=== PATIENT | male | born 1965 | race Caucasian/White ===

== ENCOUNTER 2018-01-10 12:02 | Inpatient (IN) | payer OTHER ==
[~2018-01-10] VITALS: Ht 160 cm; Wt 69.5 kg
[~2018-01-10 12:02] MED LIST: ACETAMINOPHEN325 M1 PO; ADVIL MIGRAINE200 MG PO; ADVIL,NUPRIN,M200 MG PO; ATHENOL325 MG PO; BICARSIM80 MG PO; BISAC-EVAC10 MG PR; CARAFATE1 GM PO; CLONAZEPAM1 MG PO; CLONIDINE HCL0.1 MG PO; COLACE100 MG PO; CONSTULOSE10 GM/15 M PO; DAIRY RELIE3000 UNIT PO; DESYREL 150 MG150 MG PO; DULCOLAX10 MG PR; DUONEB 2.5-0.5 M3 ML IH; Dulcolax PR; FEROSUL220 MG/51 PO; FERROUS SU220 MG/51 PO; FLINTSTONES1 TABLET PO; GAS RELIEF40 MG/0.6 PO; KLONOPIN1 MG PO; LACTAID3000 UNIT PO; LACTULOSE10 GM/151 PO; LITHIUM CARBON300 MG PO; MILK OF MAGNES311 MG PO; MILK OF MAGNESI10 ML PO; MOTRIN IB200 MG PO; MULTICHEW CHEW1 EACH; MULTIVITAMIN; MULTIVITAMIN1 EAC2 PO; Milk Of Magnesia,MOM PO; NYSTATIN15 GM TP; PANTOPRAZOLE SO40 MG PO; PERIDEX1 ML MM; PERIDEX1 ML PO; PLETAL100 M1 PO; PLETAL100 MG PO; PREVIDENT 500056 GM PO; PRINIVIL10 MG PO; PROTONIX40 MG PO; QUETIAPINE FUMA50 MG PO; RANITIDINE HCL300 MG PO; REGLAN5 MG PO; ROBITUSSIN DM1 ML PO; ROBITUSSIN DM118 ML PO; SEROQUEL100 MG PO; SEROQUEL200 MG PO; TYLENOL REGULA325 MG PO; TYLENOL325 M1 PO; VALIUM10 MG PO; ZOFRAN4 MG PO
[2018-01-10 12:56] LABS: HEMATOCRIT 40.5 % (38.0-50.0); MCH 32.7 PG (29.0-34.0); MCHC 34.6 G/DL (30.0-36.0); MCV 94.6 FL (86-99); PLATELET COUNT 156 K/uL (156-360); RBC DIS.WIDTH-SD 54.8 % (39-53); RED BLOOD COUNT 4.28 M/uL (4.00-5.50); WHITE BLOOD COUNT 8.8 K/uL (4.1-10.2)
[2018-01-10 13:10] LABS: CHLORIDE 107 mEq/L (99-109); POTASSIUM 3.8 mEq/L (3.7-5.4); SODIUM 140 mEq/L (136-147)
[2018-01-10 13:12] LABS: GLUCOSE 114 mg/dL (70-99)
[2018-01-10 13:16] LABS: CREATININE 0.7 mg/dL (0.6-1.3); GFR ESTIMATE (CALCULATED) > 59 mL/min/ (58.99-99999)
[2018-01-10 13:17] LABS: UREA NITROGEN (BUN) 8 mg/dL (9-23)
[2018-01-10] MEDS ORDERED: OMEPRAZOLE40 M1 PO (17:53)
[2018-01-10] MEDS ORDERED: METAMUCIL PACK3.4 GM PO (17:53)
[2018-01-10] MEDS ORDERED: COLACE100 MG PO (17:55)
[2018-01-10] MEDS ORDERED: SENNA8.6 MG PO (17:56)
[2018-01-10] MEDS ORDERED: CEFTIN500 MG PO (17:57)
[2018-01-10] MEDS ORDERED: SEROQUEL12.5 MG PO (17:59)
[2018-01-10] MEDS ORDERED: HEMORRHOIDAL OI57 G2 PR (18:03)
[2018-01-10] MEDS ORDERED: PHENERGAN-CODE120 ML PO (18:08)
[2018-01-10 22:27] VITALS: BP 126/78
[2018-01-11] VITALS: BP 120/70
[2018-01-11 04:03] VITALS: BP 133/72
[2018-01-11 06:10] LABS: BASOPHIL (%) 0.1 % (0-1); EOSINOPHIL (%) 0 % (0-5); HEMATOCRIT 39.4 % (38.0-50.0); HEMOGLOBIN 14.1 G/DL (12.5-16.6); IMMATURE GRANULOCYTE (%) 0.8 % (0.0-0.7); LYMPHOCYTE COUNT 0.8 K/uL (1.0-2.8); MCH 34.4 PG (29.0-34.0); MCHC 35.8 G/DL (30.0-36.0); MCV 96.1 FL (86-99); MONOCYTE (%) 0.8 % (3-12); MONOCYTE COUNT 0.1 K/uL (0-0.8); NEUTROPHIL (%) 91.3 % (45-76); NEUTROPHIL COUNT 10.4 K/uL (1.8-6.4); RBC DIS.WIDTH-CV 16.2 % (11.8-14.6); RBC DIS.WIDTH-SD 53.1 % (39-53); WHITE BLOOD COUNT 11.4 K/uL (4.1-10.2)
[2018-01-11 06:14] LABS: PLATELET COUNT 205 K/uL (156-360)
[2018-01-11 06:33] LABS: CHLORIDE 105 MEQ/L (99-109); CREATININE 0.6 MG/DL (0.6-1.3); GFR ESTIMATE (CALCULATED) > 59 mL/min/ (58.99-99999); GLUCOSE 122 mg/dL (70-99); POTASSIUM 4.2 MEQ/L (3.7-5.4); SODIUM 138 MEQ/L (136-147); UREA NITROGEN (BUN) 10 mg/dL (9-23)
[2018-01-11 07:27] VITALS: BP 138/78
[2018-01-11 12:18] VITALS: BP 118/72
[2018-01-11 23:30] VITALS: BP 150/92
[2018-01-12 08:00] VITALS: BP 140/92
[2018-01-12 16:00] VITALS: BP 124/66
[2018-01-12 23:15] VITALS: BP 112/70
[2018-01-13 08:00] VITALS: BP 129/76
[2018-01-13 16:00] VITALS: BP 136/86
[2018-01-13 23:39] VITALS: BP 114/77
[2018-01-14 07:45] VITALS: BP 117/89
[2018-01-14 15:52] VITALS: BP 118/76
[2018-01-14 22:55] VITALS: BP 121/78
[2018-01-15 07:46] VITALS: BP 121/84
[2018-01-15 09:45] LABS: BASOPHIL (%) 0.1 % (0-1); EOSINOPHIL (%) 0 % (0-5); HEMATOCRIT 44.5 % (38.0-50.0); HEMOGLOBIN 15.2 G/DL (12.5-16.6); IMMATURE GRANULOCYTE (%) 0.8 % (0.0-0.7); LYMPHOCYTE (%) 11.1 % (15-42); LYMPHOCYTE COUNT 1.5 K/uL (1.0-2.8); MCH 32.5 PG (29.0-34.0); MCHC 34.2 G/DL (30.0-36.0); MCV 95.3 FL (86-99); MONOCYTE (%) 3.8 % (3-12); MONOCYTE COUNT 0.5 K/uL (0-0.8); NEUTROPHIL (%) 84.2 % (45-76); NEUTROPHIL COUNT 11.1 K/uL (1.8-6.4); PLATELET COUNT 259 K/uL (156-360); RBC DIS.WIDTH-CV 14.8 % (11.8-14.6); RBC DIS.WIDTH-SD 50.6 % (39-53); RED BLOOD COUNT 4.67 M/uL (4.00-5.50); WHITE BLOOD COUNT 13.2 K/uL (4.1-10.2)
[2018-01-15 10:12] LABS: CHLORIDE 103 MEQ/L (99-109); CREATININE 0.8 MG/DL (0.6-1.3); GFR ESTIMATE (CALCULATED) > 59 mL/min/ (58.99-99999); GLUCOSE 202 mg/dL (70-99); POTASSIUM 3.8 MEQ/L (3.7-5.4); SODIUM 138 MEQ/L (136-147); UREA NITROGEN (BUN) 19 mg/dL (9-23)
[2018-01-15 15:53] VITALS: BP 129/91
[2018-01-16] VITALS: BP 124/84
[2018-01-16 08:10] VITALS: BP 130/84
[2018-01-16 15:50] VITALS: BP 140/78
[2018-01-16 20:05] VITALS: BP 120/76
[2018-01-16 22:56] VITALS: BP 110/85
[2018-01-17 07:48] VITALS: BP 116/63
[2018-01-17] MEDS ORDERED: PREDNISONE5 MG PO (11:51)
[2018-01-17] MEDS ORDERED: AUGMENTIN875 MG PO (11:51)
[2018-01-17 15:58] VITALS: BP 107/69
== END 2018-01-17 15:30 | disposition home or self-care (01) | DRG 202 ==
LOC: EME 12:02 → 2EAST 19:15 → EDOF 19:15 → ENRESERV 19:20 → EDOF 19:24 → 5SOUTH 20:19 → ENRESERV 20:20 → EDOF 20:24 → ENRESERV 20:37 → 2EAST 22:05 → ENPENDDIS 01-17 → 2EAST 01-17 15:30
PROVIDERS: Hospitalist; Internal Medicine; Nurse Practitioner Family
DX: J20.9 Acute bronchitis, unspecified (principal); J15.9 Unspecified bacterial pneumonia; R09.02 Hypoxemia; F79 Unspecified intellectual disabilities; G40.909 Epilepsy, unspecified, not intractable, without status epilepticus; I10 Essential (primary) hypertension; K21.9 Gastro-esophageal reflux disease without esophagitis; F41.9 Anxiety disorder, unspecified; E80.4 Gilbert syndrome; H54.7 Unspecified visual loss; H91.3 Deaf nonspeaking, not elsewhere classified; E73.9 Lactose intolerance, unspecified
CPT/HCPCS: 71045; 71046; 71250; 74230; 80048; 85025; 85027; 87040; 87070; 87205; 87449; 87502; 92610 GN; 92611 GN; 94640; 94640 76; 94799; 99202; 99281; 99285; J0295; J0456; J1650; J2920; J2930; J7030; J7050; J7512